=== PATIENT | male | born 1980 | race African-American/Black ===

== ENCOUNTER 2016-05-31 11:57 | Emergency (ER) | payer MEDICAID ==
[~2016-05-31] VITALS: Ht 190.5 cm; Wt 81.6 kg
[2016-05-31 12:03] VITALS: BP 135/92
== END 2016-05-31 13:30 | disposition home or self-care (01) ==
LOC: ER 11:57
DX: J02.9 Acute pharyngitis, unspecified (principal); F17.210 Nicotine dependence, cigarettes, uncomplicated

== ENCOUNTER 2016-07-13 17:53 | Emergency (ER) | payer MEDICAID ==
[~2016-07-13] VITALS: Ht 188 cm; Wt 73.5 kg
[2016-07-13 21:19] VITALS: BP 126/87
[2016-07-13] MEDS ORDERED: methylPREDNISolone SOD SUCC 125 MG/2 ML VL IM ONE (21:45)
[2016-07-13] MEDS ORDERED: diphenhdrAMINE HCL 12.5 MG/5 ML UD PO ONE (21:45)
== END 2016-07-13 22:07 | disposition home or self-care (01) ==
LOC: ER 18:02
DX: B86 Scabies (principal)
CPT/HCPCS: 96372; 99283; J2930

== ENCOUNTER 2016-11-14 19:52 | Emergency (ER) | payer MEDICAID ==
[~2016-11-14] VITALS: Ht 190.5 cm; Wt 81.6 kg
[2016-11-14 20:06] VITALS: BP 145/98
== END 2016-11-14 22:38 | disposition home or self-care (01) ==
LOC: ER 19:54
DX: L02.31 Cutaneous abscess of buttock (principal)

== ENCOUNTER 2016-11-17 09:00 | Emergency (ER) | payer MEDICAID ==
[~2016-11-17] VITALS: Ht 190.5 cm; Wt 81.6 kg
[2016-11-17 09:19] VITALS: BP 125/95
[2016-11-17] MEDS ORDERED: cefTRIAXone SOD 1,000 MG VL IM ONE ×2 (09:45)
== END 2016-11-17 10:36 | disposition home or self-care (01) ==
LOC: ER 09:00
DX: L03.317 Cellulitis of buttock (principal)
CPT/HCPCS: 96372; 99284; J0696

== ENCOUNTER 2016-11-20 09:14 | Emergency (ER) | payer MEDICAID ==
[~2016-11-20] VITALS: Ht 190.5 cm; Wt 73.9 kg
[2016-11-20 11:44] VITALS: BP 152/89
[2016-11-20] MEDS ORDERED: LIDOCAINE 1% HCL (LOCAL ANESTH.) INJ 20ML MDV ONE (12:33)
[2016-11-20] MEDS ORDERED: LIDOCAINE 1% HCL (LOCAL ANESTH.) INJ 20ML MDV IN ONE (12:45)
[2016-11-20] MEDS ORDERED: HYDROcodone-ACET 10/325MG TAB PO ONE (13:00)
== END 2016-11-20 14:20 | disposition home or self-care (01) ==
LOC: ER 09:14
DX: L02.31 Cutaneous abscess of buttock (principal); M87.9 Osteonecrosis, unspecified; F17.210 Nicotine dependence, cigarettes, uncomplicated
CPT/HCPCS: 10060; 72192; 99284; J2001

== ENCOUNTER 2016-11-22 10:14 | Emergency (ER) | payer MEDICAID ==
[~2016-11-22] VITALS: Ht 190.5 cm; Wt 77.1 kg
[2016-11-22 10:36] VITALS: BP 116/80
[2016-11-22] MEDS ORDERED: HYDROcodone-ACET 10/325MG TAB PO ONE (11:00)
== END 2016-11-22 11:27 | disposition home or self-care (01) ==
LOC: ER 10:30
DX: L02.31 Cutaneous abscess of buttock (principal)
CPT/HCPCS: 99283; C1887

== ENCOUNTER 2016-11-26 17:46 | Emergency (ER) | payer MEDICAID ==
[~2016-11-26] VITALS: Ht 190.5 cm; Wt 80.7 kg
[2016-11-26 21:13] VITALS: BP 118/64
== END 2016-11-26 21:33 | disposition home or self-care (01) ==
LOC: ER 17:46
DX: L02.91 Cutaneous abscess, unspecified (principal)

== ENCOUNTER 2016-12-28 10:44 | Emergency (ER) | payer MEDICAID ==
[~2016-12-28] VITALS: Ht 190.5 cm; Wt 79.4 kg
[2016-12-28 11:52] VITALS: BP 136/90
== END 2016-12-28 12:33 | disposition home or self-care (01) ==
LOC: ER 10:44
DX: K04.7 Periapical abscess without sinus (principal)

== ENCOUNTER 2017-01-18 07:56 | Emergency (ER) | payer MEDICAID ==
[~2017-01-18] VITALS: Ht 190.5 cm; Wt 79.4 kg
[2017-01-18 09:09] VITALS: BP 158/109
[2017-01-18] MEDS ORDERED: cefTRIAXone SOD 1,000 MG VL IM ONE (09:45)
== END 2017-01-18 10:18 | disposition home or self-care (01) ==
LOC: ER 07:56
DX: K04.7 Periapical abscess without sinus (principal); J03.90 Acute tonsillitis, unspecified
CPT/HCPCS: 96372; 99283; J0696

== ENCOUNTER 2017-04-26 11:07 | Emergency (ER) | payer MEDICAID ==
[~2017-04-26] VITALS: Ht 190.5 cm; Wt 73.5 kg
[2017-04-26 11:15] VITALS: BP 140/90
== END 2017-04-26 11:57 | disposition home or self-care (01) ==
LOC: ER 11:07
DX: K04.7 Periapical abscess without sinus (principal)

== ENCOUNTER 2017-09-14 08:47 | Emergency (ER) | payer MEDICAID, OTHER ==
[~2017-09-14] VITALS: Ht 190.5 cm; Wt 81.6 kg
[2017-09-14 08:53] VITALS: BP 144/102
[2017-09-14] MEDS ORDERED: cefTRIAXone SOD 1,000 MG VL IM ONE (09:15)
[2017-09-14] MEDS ORDERED: traMADol HCL 50 MG TAB PO ONE (09:15)
== END 2017-09-14 09:46 | disposition home or self-care (01) ==
LOC: ER 08:47
DX: K04.7 Periapical abscess without sinus (principal)
CPT/HCPCS: 96372; 99283; J0696

== ENCOUNTER 2018-07-13 09:23 | Emergency (ER) | payer MEDICAID ==
[~2018-07-13] VITALS: Ht 190.5 cm; Wt 81.6 kg
[2018-07-13 09:28] VITALS: BP 151/87
== END 2018-07-13 10:24 | disposition home or self-care (01) ==
LOC: ER 09:23
DX: S93.601A Unspecified sprain of right foot, initial encounter (principal); X50.1XXA Overexertion from prolonged static or awkward postures, initial encounter; Y93.89 Activity, other specified; Y99.8 Other external cause status; Y92.89 Other specified places as the place of occurrence of the external cause
CPT/HCPCS: 73630

== ENCOUNTER 2018-10-18 09:55 | Emergency (ER) | payer MEDICAID ==
[~2018-10-18] VITALS: Ht 190.5 cm; Wt 81.6 kg
[2018-10-18 10:06] VITALS: BP 124/90
[2018-10-18] MEDS ORDERED: KETOROLAC TROMETH 60MG/2ML VIAL IM ONE (11:00)
== END 2018-10-18 11:49 | disposition home or self-care (01) ==
LOC: ER 10:02
DX: S92.511A Displaced fracture of proximal phalanx of right lesser toe(s), initial encounter for closed fracture (principal); S29.011A Strain of muscle and tendon of front wall of thorax, initial encounter; W22.8XXA Striking against or struck by other objects, initial encounter; Y93.89 Activity, other specified; Y99.8 Other external cause status; Y92.89 Other specified places as the place of occurrence of the external cause
CPT/HCPCS: 71101; 73630; 96372; 99283; J1885; L3260

== ENCOUNTER 2019-05-16 03:45 | Emergency (ER) | payer MEDICAID ==
[~2019-05-16] VITALS: Ht 190.5 cm; Wt 81.6 kg
[2019-05-16 05:51] LABS: Urine Bacteria NONE SEEN /hpf (None Seen); Urine Blood Negative /uL (Negative); Urine Mucus FEW (None Seen); Urine Specific Gravity 1.021 (1.001-1.035); Urine WBC <1 /hpf (0 - 3)
[2019-05-16 06:49] VITALS: BP 139/88
[2019-05-16] MEDS ORDERED: cefTRIAXone SOD 1,000 MG VL IM ONE (07:00)
[2019-05-16] MEDS ORDERED: KETOROLAC TROMETH 60MG/2ML VIAL IM ONE (07:00)
== END 2019-05-16 07:23 | disposition home or self-care (01) ==
LOC: ER 03:47
DX: J02.9 Acute pharyngitis, unspecified (principal); J20.9 Acute bronchitis, unspecified; F17.210 Nicotine dependence, cigarettes, uncomplicated
CPT/HCPCS: 71045; 81001; 96372; 99284; J0696; J1885

== ENCOUNTER 2019-10-22 11:05 | Emergency (ER) | payer MEDICAID ==
[~2019-10-22] VITALS: Ht 188 cm; Wt 81.6 kg
[2019-10-22 11:17] VITALS: BP 129/89
[2019-10-22] MEDS ORDERED: ACETAMINOPHEN 325 MG TAB PO ONE ×2 (12:15→12:30)
[2019-10-22] MEDS ORDERED: IBUPROFEN 800 MG TAB PO ONE (12:15)
== END 2019-10-22 12:45 | disposition home or self-care (01) ==
LOC: ER 11:05
DX: S01.412A Laceration without foreign body of left cheek and temporomandibular area, initial encounter (principal); F17.210 Nicotine dependence, cigarettes, uncomplicated; Y08.89XA Assault by other specified means, initial encounter; Y93.89 Activity, other specified; Y92.89 Other specified places as the place of occurrence of the external cause; Y99.8 Other external cause status
CPT/HCPCS: 12011; 70450; 70486

== ENCOUNTER → 2019-11-01 | Emergency (ER) | payer MEDICAID ==
[~2019-11-01] VITALS: Ht 190.5 cm; Wt 81.6 kg
[2019-11-01 12:07] VITALS: BP 113/74
== END | disposition home or self-care (01) ==
LOC: ER 11:39
DX: S01.412D Laceration without foreign body of left cheek and temporomandibular area, subsequent encounter (principal); X58.XXXD Exposure to other specified factors, subsequent encounter

== ENCOUNTER 2021-02-26 13:56 | Emergency (ER) | payer MEDICAID ==
[~2021-02-26] VITALS: Ht 190.5 cm; Wt 81.6 kg
[2021-02-26 15:03] VITALS: BP 119/74
[2021-02-26] MEDS ORDERED: TRAM-297 PO (15:06)
== END 2021-02-26 20:57 | disposition home or self-care (01) ==
LOC: ER 13:56
DX: M16.0 Bilateral primary osteoarthritis of hip (principal); I96 Gangrene, not elsewhere classified; F17.210 Nicotine dependence, cigarettes, uncomplicated; Z79.899 Other long term (current) drug therapy
CPT/HCPCS: 73502

== ENCOUNTER 2021-06-18 06:39 | Emergency (ER) | payer MEDICAID ==
[~2021-06-18] VITALS: Ht 193 cm; Wt 81.6 kg
[~2021-06-18 06:39] MED LIST: TRAM-297 PO
[2021-06-18 07:42] VITALS: BP 141/93
[2021-06-18] MEDS ORDERED: IBUP800T27 PO (08:06)
[2021-06-18] MEDS ORDERED: BACL10TA PO (08:06)
== END 2021-06-18 08:10 | disposition home or self-care (01) ==
LOC: ER 06:39
DX: S83.91XA Sprain of unspecified site of right knee, initial encounter (principal); G89.29 Other chronic pain; M25.551 Pain in right hip; F17.210 Nicotine dependence, cigarettes, uncomplicated; Z79.1 Long term (current) use of non-steroidal anti-inflammatories (NSAID); Z79.899 Other long term (current) drug therapy; W18.39XA Other fall on same level, initial encounter; Y93.89 Activity, other specified; Y92.89 Other specified places as the place of occurrence of the external cause; Y99.8 Other external cause status
CPT/HCPCS: 73562

== ENCOUNTER 2021-07-10 08:05 | Emergency (ER) | payer MEDICAID ==
[~2021-07-10] VITALS: Ht 190.5 cm; Wt 81.6 kg
[~2021-07-10 08:05] MED LIST changes: +BACL10TA PO; +IBUP800T27 PO
[2021-07-10] MEDS ORDERED: MORPHINE SULFATE INJECTION 2 MG/ML SYRG IM ONE (08:30)
[2021-07-10] MEDS ORDERED: ONDANSETRON ODT 4 MG TAB PO ONE (08:30)
[2021-07-10 09:27] VITALS: BP 142/106
[2021-07-10 09:37] LABS: Basophils # (auto) 0.1 10 ^3/uL (0-0.2); Basophils % (auto) 0.9 % (0.0-2.0); Eosinophils # (auto) 0.1 10 ^3/uL (0-0.8); Eosinophils % (auto) 1.8 % (0.0-7.0); Hemoglobin 13.2 g/dL (13.5-17.5); Lymphocytes # (auto) 1.2 10 ^3/uL (0.4-5.4); Lymphocytes % (auto) 20.7 % (10.0-50.0); Mean Corpuscular Volume 81.9 fL (80.0-100.0); Monocytes # (auto) 0.6 10 ^3/uL (0-1.3); Monocytes % (auto) 10.2 % (0.0-12.0); Neutrophils # (auto) 3.9 10 ^3/uL (1.6-8.6); Neutrophils % (auto) 66.4 % (37.0-80.0); Nucleated Red Blood Cells % 0.1 %; Red Blood Cells 4.88 10^6/uL (4.5-5.90); Red Cell Distribution Width 15.6 % (11.8-14.3); White Blood Cell 5.8 10^3/uL (4.4-10.8)
[2021-07-10 09:56] LABS: Albumin 3.6 g/dL (3.4-5.0); Calcium 9.5 mg/dL (8.5-10.1); Potassium 4.3 mmol/L (3.5-5.1)
[2021-07-10 10:00] LABS: BUN/Creatinine Ratio 10.3; Bilirubin, Total 0.5 mg/dL (0.2-1.0)
[2021-07-10 10:05] LABS: INR 0.98 (0.9-1.15); Partial Thromboplastin Time 32.3 sec (23.6-33.0)
[2021-07-10] MEDS ORDERED: ACETAMINOPHEN/CODEINE#3 (300/30mg) TAB ONE (13:34)
[2021-07-10] MEDS ORDERED: MONTELUKAST SODIUM 10 MG TAB PO ONE (15:30)
[2021-07-10] MEDS ORDERED: MORPHINE SULFATE INJECTION 2 MG/ML SYRG IV PRN (15:30)
[2021-07-10] MEDS ORDERED: ONDANSETRON HCL 4 MG/2 ML VIAL IV PRN (15:30)
[2021-07-10] MEDS ORDERED: HYDROcodone-ACET 5/325MG TAB PO ONE (15:30)
[2021-07-10] MEDS ORDERED: ceFAZolin 1GM/50ML 50 ML IV ONE (15:30)
[2021-07-10] MEDS ORDERED: LORazepam 0.5 MG TAB PO PRN (15:30)
[2021-07-10] MEDS ORDERED: IPRATROPIUM BROM 0.5 MG/2.5ML INH SOL NEB ONE (15:30)
[2021-07-10] MEDS ORDERED: DOCUSATE SOD 100 MG CAP PO PRN (15:30)
[2021-07-10] MEDS ORDERED: FAMOTIDINE (10MG/ML) 2ML VL IV ONE (15:30)
[2021-07-10] MEDS ORDERED: BACLOFEN 10 MG TAB PO PRN (15:30)
[2021-07-10] MEDS ORDERED: hydrALAZINE HCL 20 MG/ML VL IV PRN (15:30)
[2021-07-10] MEDS ORDERED: SODIUM CHLORIDE 0.9% 1,000 ML IV SCH (15:30)
[2021-07-10] MEDS ORDERED: ALBUTEROL SULF 2.5 MG/0.5ML(0.5%) NEB SOLN NEB ONE (15:30)
[2021-07-10] MEDS ORDERED: LACTULOSE 20Gm/30ML SOLN PO PRN (15:30)
[2021-07-10] MEDS ORDERED: ceFAZolin 1GM/50ML 50 ML IV SCH (15:35)
[2021-07-10] MEDS ORDERED: ENOXAPARIN SOD 40 MG/0.4 ML SYRINGE SC SCH (15:43)
[2021-07-10] MEDS ORDERED: ALBUTEROL SULF 2.5 MG/0.5ML(0.5%) NEB SOLN NEB PRN (19:30)
[2021-07-10] MEDS ORDERED: IPRATROPIUM BROM 0.5 MG/2.5ML INH SOL NEB PRN (19:30)
[2021-07-10] MEDS ORDERED: HYDROcodone-ACET 5/325MG TAB PO PRN (21:30)
[2021-07-10] MEDS ORDERED: MONTELUKAST SODIUM 10 MG TAB PO SCH (22:00)
[2021-07-11] MEDS ORDERED: FAMOTIDINE (10MG/ML) 2ML VL IV SCH (10:00)
[2021-07-11] MEDS ORDERED: CHOLECALCIFEROL (VITD3) 2,000 UNIT CAP/TAB PO SCH (10:00)
== END 2021-07-10 09:42 | disposition left against medical advice (07) ==
LOC: ER 08:05
DX: S72.051A Unspecified fracture of head of right femur, initial encounter for closed fracture (principal); F17.210 Nicotine dependence, cigarettes, uncomplicated; F12.10 Cannabis abuse, uncomplicated; W18.09XA Striking against other object with subsequent fall, initial encounter; Y93.89 Activity, other specified; Y92.091 Bathroom in other non-institutional residence as the place of occurrence of the external cause; Y99.8 Other external cause status
CPT/HCPCS: 36415; 72192; 80053; 85025; 85610; 85730; 96372; 99284; J2270; Q0162

== ENCOUNTER 2021-07-10 12:26 | Inpatient (IN) | payer MEDICAID ==
[~2021-07-10] VITALS: Ht 193 cm; Wt 73.3 kg
[2021-07-10] MEDS ORDERED: MORPHINE SULFATE INJECTION 2 MG/ML SYRG IV ONE (13:00)
[2021-07-10] MEDS ORDERED: ONDANSETRON ODT 4 MG TAB PO ONE (13:00)
[2021-07-10] MEDS ORDERED: ACETAMINOPHEN/CODEINE#3 (300/30mg) TAB PO ONE (13:15)
[2021-07-10] MEDS ORDERED: MORPHINE SULFATE INJECTION 2 MG/ML SYRG IV PRN (14:30)
[2021-07-10] MEDS ORDERED: NITROGLYCERIN 0.4 MG SL TAB SL PRN (14:30)
[2021-07-10 15:45] VITALS: BP 131/85
[2021-07-10 15:56] LABS: INR 0.99 (0.9-1.15); Partial Thromboplastin Time 32.1 sec (23.6-33.0)
[2021-07-10 16:02] LABS: Magnesium 2.1 mg/dL (1.6-2.6); Phosphorus 2.7 mg/dL (2.5-4.90)
[2021-07-10] MEDS ORDERED: HYDROcodone-ACET 5/325MG TAB PO ONE (17:00)
[2021-07-10] MEDS ORDERED: IPRATROPIUM BROM 0.5 MG/2.5ML INH SOL NEB ONE (17:00)
[2021-07-10] MEDS ORDERED: hydrALAZINE HCL 20 MG/ML VL IV PRN (17:00)
[2021-07-10] MEDS ORDERED: LORazepam 0.5 MG TAB PO PRN (17:00)
[2021-07-10] MEDS ORDERED: ceFAZolin 1GM/50ML 50 ML IV ONE (17:00)
[2021-07-10] MEDS ORDERED: MONTELUKAST SODIUM 10 MG TAB PO ONE (17:00)
[2021-07-10] MEDS ORDERED: BUDESONIDE (INHALATION) 0.5 MG/2 ML NEB NEB ONE (17:00)
[2021-07-10] MEDS ORDERED: ALBUTEROL SULF 2.5 MG/0.5ML(0.5%) NEB SOLN NEB ONE (17:00)
[2021-07-10] MEDS ORDERED: LACTULOSE 20Gm/30ML SOLN PO PRN (17:00)
[2021-07-10] MEDS ORDERED: DOCUSATE SOD 100 MG CAP PO PRN (17:00)
[2021-07-10 17:19] LABS: Amphetamine Screen, Urine POSITIVE (NEGATIVE); Barbiturate Scree,Urine NEGATIVE (NEGATIVE); Benzodiazephine Screen, Urine NEGATIVE (NEGATIVE); Cannabinoid Screen, Urine POSITIVE (NEGATIVE); Cocaine Screen, Urine NEGATIVE (NEGATIVE)
[2021-07-10 17:26] LABS: Opiate Scree,Urine POSITIVE (NEGATIVE); Phencyclidine Screen, Urine NEGATIVE (NEGATIVE)
[2021-07-10] MEDS: SODIUM CHLORIDE 0.9% 1,000 ML IV SCH (18:38)
[2021-07-10] MEDS: ceFAZolin 1GM/50ML 50 ML IV SCH (18:39)
[2021-07-10] MEDS: ENOXAPARIN SOD 40 MG/0.4 ML SYRINGE SC SCH (18:40)
[2021-07-10 20:45] VITALS: BP 133/91
[2021-07-10 22:00] VITALS: BP 133/91
[2021-07-10] MEDS ORDERED: MONTELUKAST SODIUM 10 MG TAB PO SCH (22:00)
[2021-07-10] MEDS: BUDESONIDE (INHALATION) 0.5 MG/2 ML NEB NEB SCH (22:55)
[2021-07-10] MEDS: IPRATROPIUM BROM 0.5 MG/2.5ML INH SOL NEB SCH (22:55)
[2021-07-10] MEDS: ALBUTEROL SULF 2.5 MG/0.5ML(0.5%) NEB SOLN NEB PRN (22:55)
[2021-07-11 00:45] LABS: Urine Bacteria NONE SEEN /hpf (None Seen); Urine Blood Negative /uL (Negative); Urine Mucus FEW (None Seen); Urine Specific Gravity 1.042 (1.001-1.035); Urine WBC 1 /hpf (0 - 3)
[2021-07-11 00:55] LABS: Amphetamine Screen, Urine POSITIVE (NEGATIVE); Barbiturate Scree,Urine NEGATIVE (NEGATIVE); Benzodiazephine Screen, Urine NEGATIVE (NEGATIVE); Cannabinoid Screen, Urine POSITIVE (NEGATIVE); Cocaine Screen, Urine NEGATIVE (NEGATIVE); Opiate Scree,Urine POSITIVE (NEGATIVE); Phencyclidine Screen, Urine NEGATIVE (NEGATIVE)
[2021-07-11] MEDS: ceFAZolin 1GM/50ML 50 ML IV SCH ×2 (01:04→09:10)
[2021-07-11 01:15] LABS: Protein, Urine 33.2 mg/dL (0.0-11.9)
[2021-07-11] MEDS: HYDROcodone-ACET 5/325MG TAB PO PRN ×2 (02:20→14:40)
[2021-07-11] MEDS: IPRATROPIUM BROM 0.5 MG/2.5ML INH SOL NEB SCH ×4 (02:46→14:00)
[2021-07-11] MEDS: ALBUTEROL SULF 2.5 MG/0.5ML(0.5%) NEB SOLN NEB PRN ×2 (02:46→06:53)
[2021-07-11 05:00] VITALS: BP 136/83
[2021-07-11 06:00] LABS: Basophils # (auto) 0 10 ^3/uL (0-0.2); Eosinophils # (auto) 0.2 10 ^3/uL (0-0.8); Mean Corpuscular Hgb Conc. 32.4 g/dL (32.0-36.0); Monocytes # (auto) 0.6 10 ^3/uL (0-1.3); Nucleated Red Blood Cells % 0.1 %; Red Blood Cells 4.41 10^6/uL (4.5-5.90)
[2021-07-11 06:02] LABS: Basophils % (auto) 0.6 % (0.0-2.0); Eosinophils % (auto) 3.4 % (0.0-7.0); Hematocrit 36.6 % (41.0-53.0); Hemoglobin 11.9 g/dL (13.5-17.5); Lymphocytes # (auto) 1.7 10 ^3/uL (0.4-5.4); Lymphocytes % (auto) 29.2 % (10.0-50.0); Mean Corpuscular Hemoglobin 26.9 pg (28.0-32.0); Monocytes % (auto) 9.6 % (0.0-12.0); Neutrophils # (auto) 3.3 10 ^3/uL (1.6-8.6); Neutrophils % (auto) 57.2 % (37.0-80.0); Red Cell Distribution Width 15.7 % (11.8-14.3); White Blood Cell 5.9 10^3/uL (4.4-10.8)
[2021-07-11 06:09] LABS: INR 0.96 (0.9-1.15); Partial Thromboplastin Time 32.8 sec (23.6-33.0)
[2021-07-11 06:32] LABS: Aspartate Aminotransferase 25 U/L (15-37); Magnesium 1.9 mg/dL (1.6-2.6); Uric Acid 6.4 mg/dL (3.5-7.2)
[2021-07-11 06:44] LABS: Alanine Aminotransferase 22 U/L (16-61); Alkaline Phosphatase 94 U/L (45-117); BUN/Creatinine Ratio 12.5; Bilirubin, Total 0.2 mg/dL (0.2-1.0); Blood Urea Nitrogen 10 mg/dL (7-18); CRP High Sensitivity 1.86 mg/dL (< 0.3); Calcium 9.2 mg/dL (8.5-10.1); Cholesterol 197 mg/dL (< 200); Creatine Kinase IFCC 300 U/L (39-308); GFR African American 136 mL/min; GFR Non-African American 113 mL/min; Glucose 98 mg/dL (74-106); HDL Cholesterol 44 mg/dL (40-59); LDL Cholesterol 112 mg/dL (< 100); Lipase 108 U/L (73-393); Phosphorus 4.1 mg/dL (2.5-4.90); Total Protein 7.1 g/dL (6.4-8.2); Triglycerides 233 mg/dL (< 150)
[2021-07-11] MEDS: BUDESONIDE (INHALATION) 0.5 MG/2 ML NEB NEB SCH (06:54)
[2021-07-11 07:14] LABS: Anion Gap 4 (5-15); Carbon Dioxide 27 mmol/L (21-32); Chloride 107 mmol/L (98-107); Potassium 3.8 mmol/L (3.5-5.1); Sodium 138 mmol/L (136-145)
[2021-07-11] MEDS: ENOXAPARIN SOD 40 MG/0.4 ML SYRINGE SC SCH (09:37)
[2021-07-11] MEDS: SODIUM CHLORIDE 0.9% 1,000 ML IV SCH (09:40)
[2021-07-11 10:26] VITALS: BP 138/85
[2021-07-11 13:14] VITALS: BP 119/96
== END 2021-07-11 17:26 | disposition home or self-care (01) | DRG 340 ==
LOC: ER 12:26 → OVERFLOW 14:16 → EAST 20:10
PROVIDERS: ADMIT Hospitalist; ATTEND Internal Medicine
DX: S72.051A Unspecified fracture of head of right femur, initial encounter for closed fracture (principal); M87.851 Other osteonecrosis, right femur; F12.90 Cannabis use, unspecified, uncomplicated; G89.4 Chronic pain syndrome; Z20.822 Contact with and (suspected) exposure to COVID-19; F17.210 Nicotine dependence, cigarettes, uncomplicated; J44.9 Chronic obstructive pulmonary disease, unspecified; F15.10 Other stimulant abuse, uncomplicated; M19.90 Unspecified osteoarthritis, unspecified site; Z96.641 Presence of right artificial hip joint; W18.39XA Other fall on same level, initial encounter; Y93.89 Activity, other specified; Y92.89 Other specified places as the place of occurrence of the external cause; Y99.8 Other external cause status
CPT/HCPCS: 36415; 71045; 80053; 80061; 80307; 81001; 82550; 82728; 83036; 83615; 83690; 83735; 83880; 84100; 84156; 84443; 84484; 84550; 85025; 85379; 85610; 85652; 85730; 86038; 86141; 86431; 86850; 86900; 86901; 87040; 87086; 93970; 94640; 96360; 96372; G0378; J0690

== ENCOUNTER 2021-08-30 11:02 | Emergency (ER) | payer MEDICAID ==
[~2021-08-30] VITALS: Ht 190.5 cm; Wt 81.6 kg
[2021-08-30 12:37] VITALS: BP 132/83
== END 2021-08-30 14:35 | disposition home or self-care (01) ==
LOC: ER 11:02
DX: I96 Gangrene, not elsewhere classified (principal); F17.210 Nicotine dependence, cigarettes, uncomplicated; Z79.1 Long term (current) use of non-steroidal anti-inflammatories (NSAID); Z79.899 Other long term (current) drug therapy
CPT/HCPCS: 72192

== ENCOUNTER 2021-10-15 23:42 | Emergency (ER) | payer MEDICAID | END 2021-10-16 01:49 | disposition left against medical advice (07) | LOC: ER 23:42 | DX: M25.551 Pain in right hip (principal); Z53.21 Procedure and treatment not carried out due to patient leaving prior to being seen by health care provider ==

== ENCOUNTER 2022-02-01 11:53 | Emergency (ER) | payer MEDICAID ==
[~2022-02-01] VITALS: Ht 190.5 cm; Wt 72.6 kg
[2022-02-01] MEDS ORDERED: HYDROcodone-ACET 5/325MG TAB PO ONE (13:15)
[2022-02-01] MEDS ORDERED: TRAM-297 PO (14:00)
[2022-02-01 14:02] VITALS: BP 139/113
== END 2022-02-01 14:28 | disposition home or self-care (01) ==
LOC: ER 11:53
DX: G89.29 Other chronic pain (principal); M25.551 Pain in right hip; F17.210 Nicotine dependence, cigarettes, uncomplicated; F12.10 Cannabis abuse, uncomplicated; Z87.39 Personal history of other diseases of the musculoskeletal system and connective tissue

== ENCOUNTER → 2023-02-21 | Emergency (ER) | payer MEDICAID ==
[~2023-02-21] VITALS: Ht 185.4 cm; Wt 81.0 kg
[~2023-02-21] MED LIST changes: +IBUP-1456 PO; -IBUP800T27 PO
[2023-02-21 19:42] VITALS: BP 150/84; PULSE 99; RESP 18; O2SAT 97
== END | disposition left against medical advice (07) ==
LOC: EDUNIT# 19:30 → ER 19:42 → EDBD 19:42
DX: M25.551 Pain in right hip (principal); Z53.21 Procedure and treatment not carried out due to patient leaving prior to being seen by health care provider; V43.62XA Car passenger injured in collision with other type car in traffic accident, initial encounter; Y93.89 Activity, other specified; Y92.488 Other paved roadways as the place of occurrence of the external cause; Y99.8 Other external cause status

== ENCOUNTER 2023-10-19 06:33 | Inpatient (IN) | payer MEDICAID ==
[~2023-10-19] VITALS: Ht 190.5 cm; Wt 73.5 kg
[2023-10-19 07:42] LABS: Urine Bacteria FEW /hpf (None Seen); Urine Blood 1+ /uL (Negative); Urine Clarity Clear (Clear); Urine Color Yellow (Yellow); Urine Mucus FEW (None Seen); Urine Protein, UAD 1+ (Negative); Urine Specific Gravity 1.039 (1.001-1.035); Urine Urobilinogen 3 mg/dL (Negative); Urine WBC <1 /hpf (0 - 3); Urine pH 5.5 (5.0-9.0)
[2023-10-19 07:51] LABS: Basophils # (auto) 0.1 10 ^3/uL (0-0.2); Eosinophils # (auto) 0 10 ^3/uL (0-0.8); Eosinophils % (auto) 0.1 % (0.0-7.0); Monocytes # (auto) 0.7 10 ^3/uL (0-1.3); Neutrophils % (auto) 88.3 % (37.0-80.0)
[2023-10-19 07:54] LABS: Basophils % (auto) 0.3 % (0.0-2.0); Hematocrit 44.6 % (41.0-53.0); Hemoglobin 14.7 g/dL (13.5-17.5); Lymphocytes # (auto) 1.3 10 ^3/uL (0.4-5.4); Lymphocytes % (auto) 7.5 % (10.0-50.0); Mean Corpuscular Hemoglobin 26.2 pg (28.0-32.0); Mean Corpuscular Hgb Conc. 32.9 g/dL (32.0-36.0); Mean Corpuscular Volume 79.7 fL (80.0-100.0); Monocytes % (auto) 3.8 % (0.0-12.0); Neutrophils # (auto) 15.2 10 ^3/uL (1.6-8.6); Nucleated Red Blood Cells % 0.1 %; Red Cell Distribution Width 14.9 % (11.8-14.3); White Blood Cell 17.2 10^3/uL (4.4-10.8)
[2023-10-19] MEDS: ONDANSETRON HCL 4 MG/2 ML VIAL IV ONE ×2 (07:56→16:00)
[2023-10-19] MEDS: PANTOPRAZOLE 40 MG/10 ML VIAL INJ IV ONE (07:56)
[2023-10-19] MEDS: SODIUM CHLORIDE 0.9% 1,000 ML IVB ONE (07:57)
[2023-10-19] MEDS: MORPHINE SULFATE 4 MG/ML SYR/VIAL IV ONE (07:57)
[2023-10-19 08:09] LABS: Alanine Aminotransferase 19 U/L (7-40); Albumin 5.1 g/dL (3.2-4.8); Alkaline Phosphatase 100 U/L (46-116); Anion Gap 12 (5-15); Aspartate Aminotransferase 15 U/L (13-40); BUN/Creatinine Ratio 16.7 (10.0-20.0); Bilirubin, Total 0.9 mg/dL (0.2-1.0); Blood Urea Nitrogen 14 mg/dL (9-23); Calcium 10.2 mg/dL (8.5-10.1); Carbon Dioxide 20 mmol/L (20-30); Chloride 103 mmol/L (98-107); Glucose 128 mg/dL (74-106); Potassium 3.4 mmol/L (3.5-5.1); Sodium 135 mmol/L (136-145); Total Protein 8.1 g/dL (5.7-8.2)
[2023-10-19] MEDS: PIPERACILLIN-TAZOB 3.375GM 100 ML IV ONE (08:38)
[2023-10-19 08:44] LABS: INR 0.97 (0.9-1.15); Partial Thromboplastin Time 33.2 SEC (24.5-34.5); Prothrombin Time 10.3 sec (9.3-11.8)
[2023-10-19 09:03] LABS: Lipase 27 U/L (12-53)
[2023-10-19] MEDS ORDERED: ceFAZolin 2 GM/D5W50ml 50 ML IV ONE (13:10)
[2023-10-19] MEDS ORDERED: MIDAZOLAM HCL 2MG/2ML 2ml VIAL (1mg/ml) ONE (14:22)
[2023-10-19] MEDS ORDERED: MEPERIDINE HCL (50 MG/ML) 1 ML VIAL ONE (14:22)
[2023-10-19] MEDS ORDERED: fentaNYL CITRATE 100 MCG/2 ML VL ONE (14:22)
[2023-10-19] MEDS ORDERED: DexAMETHasone SOD PHOS 10MG/1ML VIAL INJ ONE (15:21)
[2023-10-19] MEDS ORDERED: PROPOFOL 10 MG/ML 20 ML IV ONE (15:21)
[2023-10-19] MEDS ORDERED: ONDANSETRON HCL 4 MG/2 ML VIAL ONE (15:21)
[2023-10-19] MEDS: metroNIDAZOLE 500MG/100ML 100 ML IV ONE (15:30)
[2023-10-19] MEDS: hydrALAZINE HCL 20 MG/ML VL IV PRN (15:40)
[2023-10-19] MEDS: hydrALAZINE HCL 20 MG/ML VL ONE (15:57)
[2023-10-19] MEDS ORDERED: MORPHINE SULFATE 4 MG/ML SYR/VIAL IV PRN (16:00)
[2023-10-19] MEDS ORDERED: MIDAZOLAM HCL 2MG/2ML 2ml VIAL (1mg/ml) IV PRN (16:00)
[2023-10-19] MEDS: HYDROmorphone HCL 2 MG/ML VL/or syr IV PRN (16:30)
[2023-10-19 17:03] VITALS: BP 167/89; PULSE 102; RESP 16; TEMP 97.4; O2SAT 96
[2023-10-19 17:37] VITALS: O2SAT 96
[2023-10-19] MEDS: D5W/ SOD CHL 0.9%/KCL 20MEQ 1,000 ML IV SCH (18:52)
[2023-10-19] MEDS: MORPHINE SULFATE INJ 2 MG/ml SYRG IV PRN (18:53)
[2023-10-19 20:00] VITALS: PULSE 67; RESP 18; O2SAT 96
[2023-10-19 21:00] VITALS: BP 134/90; PULSE 102; RESP 18; TEMP 97.7; O2SAT 97
[2023-10-19] MEDS: metroNIDAZOLE 500MG/100ML 100 ML IV SCH (21:14)
[2023-10-20] VITALS (7 sets, daily range): BP systolic 117–139; BP diastolic 80–97; PULSE 83–96; RESP 16–20; TEMP 97.7–98.7; O2SAT 96–99
[2023-10-20 05:54] LABS: Basophils # (auto) 0 10 ^3/uL (0-0.2); Basophils % (auto) 0.1 % (0.0-2.0); Eosinophils # (auto) 0 10 ^3/uL (0-0.8); Hemoglobin 12.2 g/dL (13.5-17.5); Lymphocytes # (auto) 0.8 10 ^3/uL (0.4-5.4); Monocytes # (auto) 0.8 10 ^3/uL (0-1.3); Monocytes % (auto) 6.7 % (0.0-12.0)
[2023-10-20 05:56] LABS: Hematocrit 37.4 % (41.0-53.0); Lymphocytes % (auto) 6.7 % (10.0-50.0); Mean Corpuscular Hemoglobin 26.2 pg (28.0-32.0); Mean Corpuscular Hgb Conc. 32.6 g/dL (32.0-36.0); Mean Corpuscular Volume 80.4 fL (80.0-100.0); Neutrophils % (auto) 86.5 % (37.0-80.0); Red Blood Cells 4.66 10^6/uL (4.5-5.90); Red Cell Distribution Width 14.9 % (11.8-14.3); White Blood Cell 11.6 10^3/uL (4.4-10.8)
[2023-10-20 06:07] LABS: Anion Gap 6 (5-15); Carbon Dioxide 26 mmol/L (20-30); Chloride 104 mmol/L (98-107); Potassium 4.2 mmol/L (3.5-5.1); Sodium 136 mmol/L (136-145)
[2023-10-20 06:08] LABS: Calcium 9.2 mg/dL (8.7-10.4)
[2023-10-20 06:13] LABS: BUN/Creatinine Ratio 8.2 (10.0-20.0); Blood Urea Nitrogen 7 mg/dL (9-23); Glucose 137 mg/dL (74-106)
[2023-10-20] MEDS: PANTOPRAZOLE 40 MG/10 ML VIAL INJ IV SCH (10:33)
[2023-10-20] MEDS: cefTRIAXone 1GM/50ML D5W 50 ML IV SCH (10:34)
[2023-10-20] MEDS: ENOXAPARIN SOD 40 MG/0.4 ML SYRINGE SC SCH (10:34)
[2023-10-20] MEDS: ONDANSETRON HCL 4 MG/2 ML VIAL IV PRN (23:16)
[2023-10-21] VITALS (7 sets, daily range): BP systolic 146–168; BP diastolic 96–101; PULSE 66–85; RESP 16–20; TEMP 97.3–98.7; O2SAT 95–100
[2023-10-21] MEDS: hydrALAZINE HCL 25 MG TAB PO ONE (12:38)
[2023-10-21] MEDS ORDERED: PROCHLORPERAZINE EDISYLATE 5 MG/ML 2ML VIAL IV PRN (14:45)
[2023-10-21] MEDS ORDERED: METOCLOPRAMIDE HCL 5MG/ml INJ 2ml VIAL IV PRN (14:45)
[2023-10-21] MEDS ORDERED: ONDANSETRON HCL 4 MG/2 ML VIAL IV PRN (14:45)
[2023-10-21] MEDS: metroNIDAZOLE 500 MG TAB PO SCH (16:55)
[2023-10-22] VITALS (8 sets, daily range): BP systolic 140–151; BP diastolic 86–99; PULSE 65–88; RESP 17–18; TEMP 97.6–98; O2SAT 98–99
[2023-10-22 09:57] LABS: Basophils # (auto) 0 10 ^3/uL (0-0.2); Basophils % (auto) 0.2 % (0.0-2.0); Eosinophils # (auto) 0 10 ^3/uL (0-0.8); Mean Corpuscular Hemoglobin 26.7 pg (28.0-32.0)
[2023-10-22 10:00] LABS: Eosinophils % (auto) 0.4 % (0.0-7.0); Hematocrit 39.1 % (41.0-53.0); Hemoglobin 12.8 g/dL (13.5-17.5); Lymphocytes # (auto) 0.7 10 ^3/uL (0.4-5.4); Lymphocytes % (auto) 7.1 % (10.0-50.0); Mean Corpuscular Hgb Conc. 32.9 g/dL (32.0-36.0); Mean Corpuscular Volume 81.2 fL (80.0-100.0); Monocytes # (auto) 0.5 10 ^3/uL (0-1.3); Monocytes % (auto) 5.1 % (0.0-12.0); Neutrophils # (auto) 9.1 10 ^3/uL (1.6-8.6); Neutrophils % (auto) 87.2 % (37.0-80.0); Red Blood Cells 4.81 10^6/uL (4.5-5.90); Red Cell Distribution Width 14.7 % (11.8-14.3); White Blood Cell 10.4 10^3/uL (4.4-10.8)
[2023-10-22] MEDS: LACTULOSE 20Gm/30ML SOLN PO ONE (10:00)
[2023-10-22 10:17] LABS: Albumin 4.1 g/dL (3.2-4.8); Alkaline Phosphatase 66 U/L (46-116); Anion Gap 6 (5-15); Aspartate Aminotransferase < 8 U/L (13-40); BUN/Creatinine Ratio 13.5 (10.0-20.0); Blood Urea Nitrogen 10 mg/dL (9-23); Calcium 9.8 mg/dL (8.7-10.4); Carbon Dioxide 27 mmol/L (20-30); Chloride 99 mmol/L (98-107); Glucose 117 mg/dL (74-106); Potassium 4.1 mmol/L (3.5-5.1); Sodium 132 mmol/L (136-145)
[2023-10-22 10:18] LABS: Bilirubin, Total 0.5 mg/dL (0.2-1.0); Total Protein 6.8 g/dL (5.7-8.2)
[2023-10-22 10:20] LABS: Alanine Aminotransferase < 9 U/L (7-40)
[2023-10-22] MEDS ORDERED: TRAM-626 PO (10:33)
[2023-10-22] MEDS ORDERED: LEVO500T91 PO (10:33)
[2023-10-22] MEDS ORDERED: METR-344 PO (10:33)
[2023-10-23 01:00] VITALS: BP 136/91; PULSE 65; RESP 17; TEMP 98; O2SAT 97
[2023-10-23 05:00] VITALS: BP 147/88; PULSE 69; RESP 20; TEMP 98.2; O2SAT 98
[2023-10-23] MEDS: DOCUSATE SOD 100 MG CAP PO PRN (06:50)
[2023-10-23 08:00] VITALS: PULSE 81; RESP 20; O2SAT 95
[2023-10-23 09:00] VITALS: BP 143/97; PULSE 88; RESP 20; TEMP 98.8; O2SAT 95
[2023-10-23 12:02] VITALS: BP 151/104; PULSE 69; RESP 18; TEMP 97.8; O2SAT 98
== END 2023-10-23 13:05 | disposition home or self-care (01) | DRG 710 ==
LOC: ER 06:33 → OVERFLOW 15:55 → EAST 17:00
PROVIDERS: ADMIT Nurse Practitioner Acute Care; ATTEND Nurse Practitioner Acute Care
PROC: 0DTJ4ZZ Resection of Appendix, Percutaneous Endoscopic Approach (ICD-10-PCS; principal; 2023-10-19 14:18)
DX: A41.9 Sepsis, unspecified organism (principal); K35.80 Unspecified acute appendicitis; E83.52 Hypercalcemia; F17.210 Nicotine dependence, cigarettes, uncomplicated; I10 Essential (primary) hypertension; E87.6 Hypokalemia; E86.0 Dehydration; Z87.11 Personal history of peptic ulcer disease
CPT/HCPCS: 36415; 74176; 80048; 80053; 81001; 83690; 83970; 85025; 85610; 85730; 86850; 86900; 86901; 96361; 96365; 96375; 97163; G0378; J1100; J2250; J2405; J2470; J2704; J3490

== ENCOUNTER 2024-07-20 15:38 | Emergency (ER) | payer MEDICAID ==
[~2024-07-20] VITALS: Ht 193 cm; Wt 72.9 kg
[~2024-07-20 15:38] MED LIST changes: +LEVO500T91 PO; +METR-344 PO; -TRAM-297 PO; +TRAM-626 PO
[2024-07-20 15:46] VITALS: BP 133/90; PULSE 119; RESP 18; TEMP 98.2; O2SAT 96
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
[2024-07-20] MEDS: HYDROcodone-ACET 10/325MG TAB PO ONE (16:43)
--- NOTE | 2024-07-20 16:51 | DVH ---
PROCEDURE: Right hip radiographs. INDICATION: fall TECHNIQUE: 3 views of the right hip were obtained. COMPARISON: R HIP COMPLETE XRAY on DOS: 02/26/21 FINDINGS: There is severe right hip joint space narrowing. Possible cortical step-off in the femoral head on the frogleg lateral view. There is flattening of the right femoral head with sclerosis in the right femoral head and acetabulum. Soft tissue swelling about the hip. IMPRESSION: 1. Severe right hip osteoarthritis. Findings suggestive of avascular necrosis of the right femoral h ead. Can not exclude fracture of the right femoral head. MRI of the right hip without contrast is rec ommended for further evaluation. HS:Y
[2024-07-20] MEDS ORDERED: IBUP1TAB5 PO (17:22)
== END 2024-07-20 17:39 | disposition home or self-care (01) ==
LOC: ER 15:38
DX: M87.051 Idiopathic aseptic necrosis of right femur (principal); M25.551 Pain in right hip; G89.29 Other chronic pain; M16.11 Unilateral primary osteoarthritis, right hip; F17.210 Nicotine dependence, cigarettes, uncomplicated; Z90.49 Acquired absence of other specified parts of digestive tract; Z79.899 Other long term (current) drug therapy
CPT/HCPCS: 73502

== ENCOUNTER 2024-08-19 12:09 | Emergency (ER) | payer MEDICAID ==
[~2024-08-19] VITALS: Ht 180.3 cm; Wt 81.3 kg
[~2024-08-19 12:09] MED LIST changes: +IBUP1TAB5 PO
[2024-08-19] MEDS ORDERED: CEPH500T PO (12:54)
--- NOTE | 2024-08-19 12:55 | ED.PDOC ---
History of Present Illness HPI Comments 44-year-old male who comes in with chief complaint of bilateral feet pain. The patient states that he was walking around the school and then started having foot pain so 911 was called and the patient was transported to our facility. Upon arrival, the patient is trying to sleep and is having blisters on his feet. The patient denies any other complaints at this time. The patient is sitting in a wheelchair and is somewhat uncooperative. Chief Complaint: Lower Extremity Time Seen by MD: 12:30 Primary Care Provider: none Reviewed Notes: Nurses Notes, Welding Instructor Notes, Medications, Allergies (No allergies to medications) Allergies: Coded Allergies: NO KNOWN ALLERGIES (Unverified , 08/05/13) Home Meds Active Scripts Ibuprofen Micronized (Ibuprofen) 600 Mg Tab, 600 MG PO Q6HPRN PRN for 5 Days, #20 TAB Prov:EVERTON CHRISTENSEN CONCRETE BUILDINGS ASSEMBLER 07/20/24 Tramadol HCl (Tramadol HCl) 50 Mg Tab, 50 MG PO Q6HPRN PRN, #20 TAB Prov:CARLOS RIVERO MD 10/22/23 Levofloxacin Hemihydrate (LEVAQUIN 500 MG) 500 Mg Tab, 1 TAB PO DAILY, #10 TAB Prov:CARLOS RIVERO MD 10/22/23 Metronidazole (Flagyl) 500 Mg Tab, 1 TAB PO TID, #30 TAB Prov:CARLOS RIVERO MD 10/22/23 Baclofen (Baclofen) 10 Mg Tab, 10 MG PO BID, #20 TAB Prov:NU CANDELARIA 06/18/21 Ibuprofen (Ibuprofen) 800 Mg Tab, 800 MG PO Q8HP PRN, #30 TAB Prov:NU CANDELARIA 06/18/21 Information Source: Patient, Emergency Med Personnel Mode of Arrival: EMS Severity: Mild Timing: Days Duration: Since onset Prehospital treatment: None Associated signs and symptoms Bilateral feet pain and redness Past Medical History PAST MEDICAL HISTORY: Arthritis Surgical History: Appendectomy Family History Family History: Reviewed,noncontributory to illness Social History Smoker: Cigarettes, Less Than 1 Pack/Day Alcohol: Occasionally Drugs: Marijuana Lives In: Home Constitutional: denies: chills, diaphoresis, fatigue, fever, malaise, sweats, weakness, others EENTM: denies: blurred vision, double vision, ear bleeding, ear discharge, ear drainage, ear pain, ear ringing, eye pain, eye redness, hearing loss, mouth pain, mouth swelling, nasal discharge, nose bleeding, nose congestion, nose pain, photophobia, tearing, throat pain, throat swelling, voice changes, others Respiratory: denies: cough, hemoptysis, orthopnea, SOB at rest, shortness of breath, SOB with excertion, stridor, wheezing, others Cardiovascular: denies: chest pain, dizzy spells, diaphoresis, Dyspnea on exertion, edema, irregular heart beat, left arm pain, lightheadedness, palpitations, PND, syncope, others Gastrointestinal: denies: abdomen distended, abdominal pain, blood streaked bowels, constipated, diarrhea, dysphagia, difficulty swallowing, hematemesis, melena, nausea, poor appetite, poor fluid intake, rectal bleeding, rectal pain, vomiting, others Genitourinary: denies: burning, dysuria, flank pain, frequency, hematuria, incontinence, penile discharge, penile sore, pain, testicle pain, testicle swelling, urgency, others Neurological: denies: dizziness, fainting, headache, left sided numbness, left sided weakness, numbness, paresthesia, pre-existing deficit, right sided numbness, right sided weakness, seizure, speech problems, tingling, tremors, weakness, others Musculoskeletal: denies: back pain, gout, joint pain, joint swelling, muscle pain, muscle stiffness, neck pain, others Integumetry: reports: wounds (Feet redness and pain); denies: bruises, change in color, change in hair/nails, dryness, laceration, lesions, lumps, rash, others Allergic/Immunocompromised: denies: Difficulty Healing, Frequent Infections, Hives, Itching, others Hematologic/Lymphatic: denies: anemia, blood clots, easy bleeding, easy bruising, swollen glands, others Endocrine: denies: excessive hunger, excessive sweating, excessive thirst, excessive urination, flushing, intolerance to cold, intolerance to heat, unexplained weight gain, unexplained weight loss, others Psychiatric: denies: anxiety, bipolar disorder, depression, hopeless, panic disorder, schizophrenia, sleepless, suicidal, others Physical Exam General Appearance: No Apparent Distress HEENT: Normal ENT Inspection, Pharynx Normal, TMs Normal Neck: Full Range of Motion, Non-Tender, Normal, Normal Inspection Respiratory: Chest Non-Tender, Lungs Clear, No Accessory Muscle Use, No Respiratory Distress, Normal Breath Sounds Cardiovascular: No Edema, No JVD, No Murmur, No Gallop, Normal Peripheral Pulses, Regular Rate/Rhythm Breast Exam: Deferred Gastrointestinal: No Organomegaly, Non Tender, No Pulsatile Mass, Normal Bowel Sounds, Soft Genitalia: Deferred Pelvic: Deferred Rectal: Deferred Extremities: No calf tenderness, Normal capillary refill, No pedal edema Musculoskeletal : Apperance: Normal Neurologic: Alert, cage unloader II-XII nml as Tested, No Motor Deficits, Normal Affect, Normal Mood, No Sensory Deficits Cerebellar Function: Normal Reflexes: Normal Skin: Dry, Warm, Other (Redness to the lower feet consistent with cellulitis) Lymphatic: No Adenopathy Was a procedure done? Was a procedure done?: No Differential Dx Considerations may include: Feet cellulitis, abscess X-Ray, Labs, Meds, VS Vital Signs Date Time Temp Pulse Resp B/P (MAP) Pulse Ox O2 Delivery O2 Flow Rate FiO2 08/19/24 12:20 98.9 84 18 151/97 (115) 99 98.9 At this time we will call group social worker for possible placement The patient was also given a prescription of Keflex for the bilateral feet cellulitis The patient will return to the emergency department's condition worsens. Time of 1ST Reevaluation: 12:53 Reevaluation 1ST: Unchanged Patient Education/Counseling: Diagnosis, Treatment, Prognosis, Need For Follow Up Family Education/Counseling: No Family Present Departure 1 Departure Time of Disposition: 12:53 Impression: Primary Impression: Cellulitis of both feet Disposition: 01 HOME / SELF CARE / HOMELESS Condition: Fair Discharged With: Self Critical Care Note Critical Care Time?: No Stability Stability form required: No Heart Score Heart Score: Heart Score Response (Comments) Value History N/A 0 EKG N/A 0 Age N/A 0 Risk Factors N/A 0 Troponin N/A 0 Total 0 LARRY SOMMER MD August 19, 2024 12:54
[2024-08-19 14:21] VITALS: BP 134/84; PULSE 92; RESP 16; TEMP 98; O2SAT 98
[2024-08-19] MEDS: CEPHALEXIN 250 MG CAP PO ONE (14:22)
== END 2024-08-19 14:28 | disposition home or self-care (01) ==
LOC: EDBD 12:09 → ER 12:15
DX: L03.115 Cellulitis of right lower limb (principal); L03.116 Cellulitis of left lower limb; F17.210 Nicotine dependence, cigarettes, uncomplicated; F12.90 Cannabis use, unspecified, uncomplicated; M19.90 Unspecified osteoarthritis, unspecified site; Z90.49 Acquired absence of other specified parts of digestive tract; Z79.899 Other long term (current) drug therapy

== ENCOUNTER 2024-09-05 17:19 | Emergency (ER) | payer MEDICAID ==
[~2024-09-05] VITALS: Ht 193 cm; Wt 72.7 kg
[~2024-09-05 17:19] MED LIST changes: +CEPH500T PO
[2024-09-05] MEDS: ADENOSINE 6 MG/2 ML INJ IV ONE ×2 (17:29→18:06)
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
[2024-09-05] MEDS: SODIUM CHLORIDE 0.9% 1,000 ML IV ONE (17:57)
[2024-09-05 18:13] LABS: Basophils # (auto) 0.1 10 ^3/uL (0-0.2); Basophils % (auto) 0.7 % (0.0-2.0); Eosinophils # (auto) 0.1 10 ^3/uL (0-0.8); Eosinophils % (auto) 1.6 % (0.0-7.0); Hematocrit 40.6 % (41.0-53.0); Hemoglobin 12.8 g/dL (13.5-17.5); Lymphocytes # (auto) 1.9 10 ^3/uL (0.4-5.4); Lymphocytes % (auto) 20.8 % (10.0-50.0); Mean Corpuscular Hgb Conc. 31.4 g/dL (32.0-36.0); Mean Corpuscular Volume 79.7 fL (80.0-100.0); Monocytes # (auto) 0.5 10 ^3/uL (0-1.3); Monocytes % (auto) 5.4 % (0.0-12.0); Neutrophils # (auto) 6.5 10 ^3/uL (1.6-8.6); Neutrophils % (auto) 71.5 % (37.0-80.0); Platelet Count (auto) 300 10^3/uL (140-450); Red Cell Distribution Width 15.6 % (11.8-14.3)
[2024-09-05 18:19] VITALS: PULSE 167; RESP 17; O2SAT 95
[2024-09-05 18:19] LABS: Potassium 4.5 mmol/L (3.5-5.1)
[2024-09-05 18:20] LABS: Anion Gap 9 (5-15); Calcium 9.8 mg/dL (8.7-10.4); Carbon Dioxide 23 mmol/L (20-31)
[2024-09-05 18:25] LABS: BUN/Creatinine Ratio 10.8 (10.0-20.0); Blood Urea Nitrogen 18 mg/dL (9-23); Glucose 98 mg/dL (74-106); Sodium 146 mmol/L (136-145)
[2024-09-05 18:26] LABS: Chloride 114 mmol/L (98-107)
--- NOTE | 2024-09-05 18:54 | DVH ---
EXAM: XY CHEST PORTABLE REASON FOR EXAM: Palpitations TECHNIQUE: 1 view of the chest COMPARISON: CHEST XRAY 1 VIEW on DOS: 07/10/21 FINDINGS/IMPRESSION: LUNGS: No pleural effusion, consolidation, or pneumothorax MEDIASTINUM: Unremarkable BONES: No acute osseous abnormality OTHER: None
[2024-09-05 19:25] VITALS: PULSE 84; RESP 15; O2SAT 96
--- NOTE | 2024-09-05 20:42 | ECG ---
[facility] Test Date: 2024-09-05 Test Time: 17:18:37 Pat Name: KATIE SUAREZ Department: ED Room: Gender: M Check Cashier: SILVANO : 1980 Requested By: LARRY SOMMER Order Number: [id number] Reading MD: Aiden Redman Measurements Intervals [place] Rate: 168 P: 0 TX: 0 QRS: 78 QRSD: 109 T: 67 QT: 300 QTc: 502 Interpretive Statements Sinus tachycardia or junctional tachycaris ST depression, probably rate related Borderline ST elevation, anterolateral leads Prolonged QT interval Electronically Signed On 09-07-2024 22:26:14 PDT by Aiden Redman Please click the below link to view image of tracing.
[2024-09-05 21:00] VITALS: BP 104/60; PULSE 80; RESP 18; O2SAT 95
== END 2024-09-06 00:35 | disposition home or self-care (01) ==
LOC: EDBD 17:19 → EDUNIT# 17:19 → ER 17:19
DX: I47.10 Supraventricular tachycardia, unspecified (principal); F14.90 Cocaine use, unspecified, uncomplicated; M19.90 Unspecified osteoarthritis, unspecified site; F17.210 Nicotine dependence, cigarettes, uncomplicated; Z59.00 Homelessness unspecified; Z79.899 Other long term (current) drug therapy; Z90.49 Acquired absence of other specified parts of digestive tract
CPT/HCPCS: 36415; 71045; 80048; 82947; 84484; 85025; 92960; 93005; 99285; J0153

== ENCOUNTER 2024-09-06 11:00 | Emergency (ER) | payer MEDICAID ==
[~2024-09-06] VITALS: Ht 193 cm; Wt 71.1 kg
--- NOTE | 2024-09-06 13:20 | ED.PDOC ---
General HPI Comments 44y M who presents to the ED for chief complain of abnormal penile discharge. Pt states he was having unprotected sex and stats he was exposed to vaginal discharge.Pt states he has noted to have now yellow discharge from penis. Time Seen by MD: 13:15 Primary Care Provider: none Reviewed notes: Medications, Allergies Allergies: Coded Allergies: NO KNOWN ALLERGIES (Unverified , 08/05/13) Home Meds Active Scripts Cephalexin Monohydrate (Cephalexin) 500 Mg Tab, 1 TAB PO BID, #20 TAB Prov:LARRY SOMMER MD 08/19/24 Ibuprofen Micronized (Ibuprofen) 600 Mg Tab, 600 MG PO Q6HPRN PRN for 5 Days, #20 TAB Prov:EVERTON CHRISTENSEN 07/20/24 Tramadol HCl (Tramadol HCl) 50 Mg Tab, 50 MG PO Q6HPRN PRN, #20 TAB Prov:CARLOS RIVERO MD 10/22/23 Levofloxacin Hemihydrate (LEVAQUIN 500 MG) 500 Mg Tab, 1 TAB PO DAILY, #10 TAB Prov:CARLOS RIVERO MD 10/22/23 Metronidazole (Flagyl) 500 Mg Tab, 1 TAB PO TID, #30 TAB Prov:CARLOS RIVERO MD 10/22/23 Baclofen (Baclofen) 10 Mg Tab, 10 MG PO BID, #20 TAB Prov:NU CANDELARIA 06/18/21 Ibuprofen (Ibuprofen) 800 Mg Tab, 800 MG PO Q8HP PRN, #30 TAB Prov:NU CANDELARIA 06/18/21 Information Source: Patient Mode of Arrival: Ambulatory Brought in by: self Past Medical History PAST MEDICAL HISTORY: Arthritis Surgical History: Appendectomy Family History Family History: Family hx of Cancer, Family hx of heart thien Social History Smoker: Cigarettes, Less Than 1 Pack/Day Alcohol: Occasionally Drugs: Cocaine, Marijuana Lives In: Homeless Constitutional: denies: chills, diaphoresis, fatigue, fever, malaise, sweats, weakness, others EENTM: denies: blurred vision, double vision, ear bleeding, ear discharge, ear drainage, ear pain, ear ringing, eye pain, eye redness, hearing loss, mouth pain, mouth swelling, nasal discharge, nose bleeding, nose congestion, nose pain, photophobia, tearing, throat pain, throat swelling, voice changes, others Respiratory: denies: cough, hemoptysis, orthopnea, SOB at rest, shortness of breath, SOB with excertion, stridor, wheezing, others Cardiovascular: denies: chest pain, dizzy spells, diaphoresis, Dyspnea on exertion, edema, irregular heart beat, left arm pain, lightheadedness, palpi tations, PND, syncope, others Gastrointestinal: denies: abdomen distended, abdominal pain, blood streaked bowels, constipated, diarrhea, dysphagia, difficulty swallowing, hematemesis, melena, nausea, poor appetite, poor fluid intake, rectal bleeding, rectal pain, vomiting, others Genitourinary: reports: penile discharge; denies: burning, dysuria, flank pain, frequency, hematuria, incontinence, penile sore, pain, testicle pain, testicle swelling, urgency, others Neurological: denies: dizziness, fainting, headache, left sided numbness, left sided weakness, numbness, paresthesia, pre-existing deficit, right sided numbness, right sided weakness, seizure, speech problems, tingling, tremors, weakness, others Musculoskeletal: denies: back pain, gout, joint pain, joint swelling, muscle pain, muscle stiffness, neck pain, others Integumetry: denies: bruises, change in color, change in hair/nails, dryness, laceration, lesions, lumps, rash, wounds, others Allergic/Immunocompromised: denies: Difficulty Healing, Frequent Infections, Hives, Itching, others Hematologic/Lymphatic: denies: anemia, blood clots, easy bleeding, easy bruising, swollen glands, others Endocrine: denies: excessive hunger, excessive sweating, excessive thirst, excessive urination, flushing, intolerance to cold, intolerance to heat, unexplained weight gain, unexplained weight loss, others Psychiatric: denies: anxiety, bipolar disorder, depression, hopeless, panic d isorder, schizophrenia, sleepless, suicidal, others All Other Systems: Reviewed and Negative Physical Exam General Appearance: No Apparent Distress, Normal HEENT: Normal ENT Inspection, Pharynx Normal, TMs Normal Neck: Full Range of Motion, Non-Tender, Normal, Normal Inspection Respiratory: Chest Non-Tender, Lungs Clear, No Accessory Muscle Use, No Respiratory Distress, Normal Breath Sounds Cardiovascular: No Edema, No JVD, No Murmur, No Gallop, Normal Peripheral Pulses, Regular Rate/Rhythm Breast Exam: Deferred Gastrointestinal: No Organomegaly, Non Tender, No Pulsatile Mass, Normal Bowel Sounds, Soft Genitalia: Deferred Pelvic: Deferred Rectal: Deferred Extremities: No calf tenderness, Normal capillary refill, Normal inspection, Normal range of motion, Non-tender, No pedal edema Musculoskeletal : Apperance: Normal Neurologic: Alert, car filler II-XII nml as Tested, No Motor Deficits, Normal Affect, Normal Mood, No Sensory Deficits Cerebellar Function: Normal Reflexes: Normal Skin: Dry, Normal Color, Warm Lymphatic: No Adenopathy Was a procedure done? Was a procedure done?: No Differential Diagnosis Kidney stone (Female): N/A Kidney stone (Male): N/A Penile/Scrotal: N/A Urinary Problem (Male): Epididymitis, Prostatitis, Urethritis, Other (STD) Urinary Problem (Female): N/A X-Ray, Labs, Meds, VS Vital Signs Date Time Temp Pulse Resp B/P (MAP) Pulse Ox O2 Delivery O2 Flow Rate FiO2 09/06/24 15:47 97 18 100 Room Air 09/06/24 15:47 97.5 97 18 136/87 (103) 100 97.5 09/06/24 11:40 98.9 100 20 127/70 (89) 96 98.9 Lab Test 09/06/24 11:50 Range/Units Chlamydia trachomatis (MARIAH) Pending Neisseria gonorrhoeae (MARIAH) Pending Current Medications Medications (Trade) Dose Ordered Sig/Anatoly Route Start Time Stop Time Status Last Admin Azithromycin (Zithromax Tablet) 1,000 mg ONCE ONCE PO 09/06/24 12:45 09/06/24 12:47 DC 09/06/24 14:19 Ceftriaxone Sodium (Rocephin) 500 mg ONCE ONCE IM 09/06/24 12:45 09/06/24 12:47 DC 09/06/24 14:20 Time of 1ST Reevaluation: 13:45 Reevaluation 1ST: Unchanged Patient Education/Counseling: Diagnosis, Treatment, Prognosis, Need For Follow Up Family Education/Counseling: No Family Present Additional Information due to suspicious history of sti exposure, i treated pt for GC and chlamydia. i also ordered for testing. i informed the pt to refrain frm having sexual activities and have his partner come be checked. we will contact him if tests youth care specialist positive Departure 1 Departure Time of Disposition: 17:17 Impression: Primary Impression: Penile discharge Disposition: 01 HOME / SELF CARE / HOMELESS Condition: Good Discharged With: Self Critical Care Note Critical Care Time?: No Stability Stability form required: No Heart Score Heart Score: Heart Score Response (Comments) Value History N/A 0 EKG N/A 0 Age N/A 0 Risk Factors N/A 0 Troponin N/A 0 Total 0 I personally scribed for COLLINS BOYLE MD ([email or web address]) on 09/06/24 at 13:20. Electronically submitted by Servando Cameron ([email or web address]). COLLINS BOYLE MD September 06, 2024 13:20
[2024-09-06] MEDS: AZITHROMYCIN 250 MG TAB PO ONE (14:19)
[2024-09-06] MEDS: LIDOCAINE 1% HCL (LOCAL ANESTH.) INJ 20ML MDV ONE (14:20)
[2024-09-06] MEDS: cefTRIAXone SOD 500 MG VL IM ONE (14:20)
[2024-09-06 15:47] VITALS: BP 136/87; PULSE 97; RESP 18; TEMP 97.5; O2SAT 100
[2024-09-08 20:06] LABS: Chlamydia Trachomatis, NAA Negative (Negative); Neisseria gonorrhoeae, NAA Positive (Negative)
== END 2024-09-06 17:42 | disposition home or self-care (01) ==
LOC: ER 11:05
DX: R36.9 Urethral discharge, unspecified (principal); M19.90 Unspecified osteoarthritis, unspecified site; F17.210 Nicotine dependence, cigarettes, uncomplicated; Z79.899 Other long term (current) drug therapy; Z90.49 Acquired absence of other specified parts of digestive tract
CPT/HCPCS: 87491; 87591; 96372; 99283; J0696; J2003